=== PATIENT | male | born 1965 | race Two or more races ===

== ENCOUNTER 2017-07-05 12:56 | Emergency (ER) | payer OTHER ==
[~2017-07-05] VITALS: Ht 175.3 cm; Wt 79.4 kg
[2017-07-05] MEDS ORDERED: INDOMETHACIN75 MG PO (13:03)
[2017-07-05] MEDS ORDERED: ALLOPURINOL300 MG PO (13:15)
[2017-07-05] MEDS ORDERED: INDOMETHACIN25 MG PO (13:15)
== END 2017-07-05 13:44 | disposition home or self-care (01) ==
LOC: ED 12:56
DX: M10.9 Gout, unspecified (principal); Z79.899 Other long term (current) drug therapy
CPT/HCPCS: 96372; 99283; J1885

== ENCOUNTER 2019-08-16 13:45 | Emergency (ER) | payer OTHER ==
[~2019-08-16] VITALS: Ht 175.3 cm; Wt 79.4 kg
--- OUTSIDE RECORDS SUMMARY | ~2019-08-16 | XMS | Encounter Summary ---
Demographics + + + | Address | [address] | | | [place] [address] | + + + | Home Phone | | + + + | Preferred Language | Unknown | + + + | Marital Status | Single | + + + | Gnosticist Affiliation | Unknown | + + + | Race | Unknown | + + + | Ethnic Group | Unknown | + + + Author + + + | Author | [facility] | | | and [place] | + + + | Organization | [facility] | | | and [place] | + + + | Address | Unknown | + + + | Phone | Unavailable | + + + Support + + +---------+ + | Name | Relationship | Address | Phone | + + +---------+ + | Iraida Carey | ECON | Unknown | | + + +---------+ + Care Team Providers + +------+ + | Care Welfare Eligibility Interviewer Name | Role | Phone | + +------+ + | Sue Covington DO | PCP | | + +------+ + Reason for Visit +--------+ + | Reason | Comments | +--------+ + | Letter | | +--------+ + Encounter Details +--------+ + + + + | Date | Type | Department | Care Team | Description | +--------+ + + + + | 07/27/ | Telephone | [place] [facility] | Sue Covington, | Letter | | 2019 | | [facility] | DO [address] | | | | | [address] | [place] [address] | | | | | [address] [place], | [phone] | | | | | [place] [address] | | | | | | [phone] | | | +--------+ + + + + Social History + +-------+ +--------+------+ | Tobacco Use | Types | Packs/Day | Years | Date | | | | | Used | | + +-------+ +--------+------+ | Never Smoker | | | | | + +-------+ +--------+------+ + +---+---+---+ | Smokeless Tobacco: | | | | | Never Used | | | | + +---+---+---+ + + +---------+ + | Alcohol Use | Drinks/We | oz/Week | Comments | | | ek | | | + + +---------+ + | Yes | 0 Shots | 0.0 | occa | | | of | | | | | liquor | | | + + +---------+ + + + + | Sex Assigned at | Date Recorded | | | | + + + | Not on file | | + + + + + + + | Job Start Date | Occupation | Industry | + + + + | Not on file | Not on file | Not on file | + + + + + + + + | Travel History | Travel Start | Travel End | + + + + + + | No recent travel history available. | + + documented as of this encounter Plan of Treatment Not on filedocumented as of this encounter Visit Diagnoses Not on filedocumented in this encounter"
--- OUTSIDE RECORDS SUMMARY | ~2019-08-16 | XMS | Encounter Summary ---
Demographics + + + | Address | [address] | | | [place] [address] | + + + | Home Phone | | + + + | Preferred Language | Unknown | + + + | Marital Status | Single | + + + | Zoroastrianism Affiliation | Unknown | + + + | Race | Unknown | + + + | Ethnic Group | Unknown | + + + Author + + + | Author | [facility] | | | and [place] | + + + | Organization | [facility] | | | and [place] | [...] Team Providers + +------+ + | Care Rd Manager Name | Role | Phone | + +------+ + | Sue Covington DO | PCP | | + +------+ + Reason for Visit + + + | Reason | Comments | + + + | Medication Refill | | + + + Encounter Details +--------+--------+ + + + | Date | Type | Department | Care Team | Description | +--------+--------+ + + + | 06/24/ | Refill | [place] [facility] | Giuliana Gomezy | Medication Refill | | 2018 | | [facility] | [address]YIN [address] | | | | | [address] | [place], [place] | | | | | [address] [place], | [address] | | | | | [place] [address] | [phone] | | | | | [phone] | | | +--------+--------+ + + + Social History + +-------+ [...]
--- OUTSIDE RECORDS SUMMARY | ~2019-08-16 | XMS | Encounter Summary ---
Demographics + + + | Address | [address] | | | [place] [address] | + + + | Home Phone | | + + + | Preferred Language | Unknown | + + + | Marital Status | Single | + + + | Yarsanism Affiliation | Unknown | + + + | Race | Unknown | + + + | Ethnic Group | Unknown | + + + Author + + + | Author | [facility] | | | and [place] | + + + | Organization | [facility] | | | and [place] | [...] Team Providers + +------+ + | Care Testing Analyst Name | Role | Phone | + [...] Description | +--------+--------+ + + + | 08/13/ | Refill | [place] [facility] | Sue Covington, | Medication Refill | | 2019 | | [facility] | DO [address] | | | | | [address] | [place] [address] | | | | | [address] [place], | [phone] | | | | | [place] [address] | | | | | | [phone] | | | +--------+--------+ + + + [...]
--- OUTSIDE RECORDS SUMMARY | ~2019-08-16 | XMS | Encounter Summary ---
Demographics + + + | Address | [address] | | | [place] [address] | + + + | Home Phone | | + + + | Preferred Language | Unknown | + + + | Marital Status | Single | + + + | Confucianism Affiliation | Unknown | + + + | Race | Unknown | + + + | Ethnic Group | Unknown | + + + Author + + + | Author | [facility] | | | and [place] | + + + | Organization | [facility] | | | and [place] | [...] Team Providers + +------+ + | Care Ekg Manager Name | Role | Phone | [...] Description | +--------+--------+ + + + | 07/30/ | Refill | [place] [facility] | Sue Covington, | Medication Refill | | 2018 | | [facility] | DO [address] | | | | | [address] | [place] [address] | | | | | [address] [place], | [phone] | | | | | [place] [address] | | | | | | [phone] | | | +--------+--------+ + + + [...]
--- OUTSIDE RECORDS SUMMARY | ~2019-08-16 | XMS | Encounter Summary ---
Demographics + + + | Address | [address] | | | [place] [address] | + + + | Home Phone | | + + + | Preferred Language | Unknown | + + + | Marital Status | Single | + + + | Amish Affiliation | Unknown | + + + | Race | Unknown | + + + | Ethnic Group | Unknown | + + + Author + + + | Author | [facility] | | | and [place] | + + + | Organization | [facility] | | | and [...] Team Providers + +------+ + | Care Production Line Name | Role | Phone | + [...] Medication Refill | | 2019 | | [facility] | DO [address] | | | | | MED[address] | [place] [address] | | | | | [address] [place], | [phone] | | | | | [place] [address] | | | | | | [phone] | | | +--------+--------+ + + + [...]
--- OUTSIDE RECORDS SUMMARY | ~2019-08-16 | XMS | Encounter Summary ---
Demographics + + + | Address | [address] | | | [place] [address] | + + + | Home Phone | | + + + | Preferred Language | Unknown | + + + | Marital Status | Single | + + + | Sikhism Affiliation | Unknown | + + + | Race | Unknown | + + + | Ethnic Group | Unknown | + + + Author + + + | Author | [facility] | | | and [place] | + + + | Organization | [facility] | | | and [place] | [...] Team Providers + +------+ + | Care Supply Chain Director Name | Role | Phone | + [...] Medication Refill | | 2019 | | [facility] | DO [address] | | | | | MEDICAL [address] | [place] [address] | | | | | [address] [place], | [phone] | | | | | [place] [address] | | | | | | [phone] | | | +--------+--------+ + + + [...]
--- OUTSIDE RECORDS SUMMARY | ~2019-08-16 | XMS | Encounter Summary ---
Demographics + + + | Address | [address] | | | [place] [address] | + + + | Home Phone | | + + + | Preferred Language | Unknown | + + + | Marital Status | Single | + + + | Latter Day Affiliation | Unknown | + + + | Race | Unknown | + + + | Ethnic Group | Unknown | + + + Author + + + | Author | [facility] | | | and [place] | + + + | Organization | [facility] | | | and [place] | [...] Team Providers + +------+ + | Care Snow Technician Name | Role | Phone | + [...] Description | +--------+--------+ + + + | 08/15/ | Refill | [place] [facility] | Sue Covington, | Medication Refill | | 2019 | | [facility] | DO [address] | | | | | MED[address] | [place] [address] | | | | | [address] [place], | [phone] | | | | | [place] [address] | | | | | | [phone] | | | +--------+--------+ + + + [...]
--- OUTSIDE RECORDS SUMMARY | ~2019-08-16 | XMS | Encounter Summary ---
Demographics + + + | Address | [address] | | | [place] [address] | + + + | Home Phone | | + + + | Preferred Language | Unknown | + + + | Marital Status | Single | + + + | Bahai Affiliation | Unknown | + + + | Race | Unknown | + + + | Ethnic Group | Unknown | + + + Author + + + | Author | [facility] | | | and [place] | + + + | Organization | [facility] | | | and [place] [...] Team Providers + +------+ + | Care Personnel Adviser Name | Role | Phone | + [...] Giuliana Gomezy | Medication Refill | | 2019 | | [facility] | [address] | | | | | MEDICAL CL[address] | [place], [place] | | | | | [address] [place], | [address] | | | | | [place] [address] | [phone] | | | | | [phone] | | | +--------+--------+ + + + [...]
--- OUTSIDE RECORDS SUMMARY | ~2019-08-16 | XMS | Encounter Summary ---
Demographics + + + | Address | [address] | | | [place] [address] | + + + | Home Phone | | + + + | Preferred Language | Unknown | + + + | Marital Status | Single | + + + | Jehovah'S Witness Affiliation | Unknown | + + + | Race | Unknown | + + + | Ethnic Group | Unknown | + + + Author + + + | Author | [facility] | | | and [place] | + + + | Organization | [facility] | | | and [...] Team Providers + +------+ + | Care Railroad Firer/Fireman Name | Role | Phone | + [...] Refill | | 2018 | | [facility] | DO [address] | | | | | MED[address] | [place] [address] | | | | | [address] [place], | [phone] | | | | | [place] [address] | | | | | | [phone] | | | +--------+--------+ + + + [...]
--- OUTSIDE RECORDS SUMMARY | ~2019-08-16 | XMS | Encounter Summary ---
Demographics + + + | Address | [address] | | | [place] [address] | + + + | Home Phone | | + + + | Preferred Language | Unknown | + + + | Marital Status | Single | + + + | Caodaism Affiliation | Unknown | + + + | Race | Unknown | + + + | Ethnic Group | Unknown | + + + Author + + + | Author | [facility] | | | and [place] | + + + | Organization | [facility] | | | and [place] [...] Team Providers + +------+ + | Care Health Spa Manager Name | Role | Phone | [...] | [facility] | DO [address] | | | | | MED[address] | [place] [address] | | | | | [address] [place], | [phone] | | | | | [place] [address] | | | | | | [phone] | | | +--------+ + + + [...]
--- OUTSIDE RECORDS SUMMARY | ~2019-08-16 | XMS | Encounter Summary ---
Demographics + + + | Address | [address] | | | [place] [address] | + + + | Home Phone | | + + + | Preferred Language | Unknown | + + + | Marital Status | Single | + + + | Lutheran Affiliation | Unknown | + + + | Race | Unknown | + + + | Ethnic Group | Unknown | + + + Author + + + | Author | [facility] | | | and [place] | + + + | Organization | [facility] | | | and [place] [...] Team Providers + +------+ + | Care Radio Director Name | Role | Phone | [...] Medication Refill | | 2019 | | [facility] | DO [address] | | | | | MED[address] | [place] [address] | | | | | [address] [place], | [phone] | | | | | [place] [address] | | | | | | [phone] | | | +--------+--------+ + + + [...]
--- OUTSIDE RECORDS SUMMARY | ~2019-08-16 | XMS | Encounter Summary ---
Demographics + + + | Address | [address] | | | [place] [address] | + + + | Home Phone | | + + + | Preferred Language | Unknown | + + + | Marital Status | Single | + + + | Zoroastrianism Affiliation | Unknown | + + + | Race | Unknown | + + + | Ethnic Group | Unknown | + + + Author + + + | Author | [facility] | | | and [place] | + + + | Organization | [facility] | | | and [place] | [...] Team Providers + +------+ + | Care Shower Maid Name | Role | Phone | + [...] Medication Refill | | 2018 | | [facility] | [address] | | | | | MED[address] | [place], [place] | | | | | [address] [place], | [address] | | | | | [place] [address] | [phone] | | | | | [phone] | | | +--------+--------+ + + + [...]
--- OUTSIDE RECORDS SUMMARY | ~2019-08-16 | XMS | Clinical Summary ---
Demographics + + + | Address | [address] | | | [place] [address] | + + + | Home Phone | | + + + | Preferred Language | Unknown | + + + | Marital Status | Single | + + + | Episcopal Affiliation | Unknown | + + + | Race | Unknown | + + + | Ethnic Group | Unknown | + + + Author + + + | Author | [facility] | | | and [place] | + + + | Organization | [facility] | | | and [place] [...] Team Providers + +------+ + | Care Asp Web Developer Name | Role | Phone | + +------+ + | Sue Covington DO | PCP | | + +------+ + Allergies No Known Allergies Medications + + + +---------+------+------+-------+ | Medication | Sig | Dispensed | Refills | Star | End | Statu | | | | | | t | Date | s | | | | | | Date | | | + + + +---------+------+------+-------+ | aspirin 81 mg | Take 1 tablet by | 30 | 11 | 08/2 | | Activ | | chewable tablet | mouth Daily. | tablet | | 9/20 | | e | | | | | | 18 | | | + + + +---------+------+------+-------+ | metoprolol | Take 1 tablet by | 90 | 4 | 10/1 | | Activ | | succinate | mouth Daily. | tablet | | 0/20 | | e | | (TOPROL-XL) 100 mg | | | | 18 | | | | ER tablet | | | | | | | + + + +---------+------+------+-------+ | fenofibrate | TAKE ONE TABLET BY | 90 | 3 | 02/0 | | Activ | | (TRICOR) 145 mg | MOUTH ONCE DAILY | tablet | | 6/20 | | e | | tabletIndications: | | | | 19 | | | | Hyperlipidemia, | | | | | | | | unspecified | | | | | | | | hyperlipidemia type | | | | | | | + + + +---------+------+------+-------+ | | Place 1 patch onto | 10 | 2 | 02/0 | | Activ | | lidocaine-tetracaine | the skin as needed. | patch | | 8/20 | | e | | (SYNERA) 70-70 mg | To back for pain on | | | 19 | | | | PTCH | 12 hour off 12 hour | | | | | | | | prn | | | | | | + + + +---------+------+------+-------+ | indomethacin | Take 1 capsule by | 180 | 1 | 04/0 | | Activ | | (INDOCIN) 50 MG | mouth 2 times daily | capsule | | 3/20 | | e | | capsule | (with breakfast & | | | 19 | | | | | dinner). | | | | | | + + + +---------+------+------+-------+ | lisinopril | Take 40 mg BID | 60 | 11 | 08/2 | | Activ | | (PRINIVIL,ZESTRIL) | | tablet | | 8/20 | | e | | 40 MG tablet | | | | 19 | | | + + + +---------+------+------+-------+ | cyclobenzaprine | TAKE 1 TABLET BY | 30 | 0 | 10/0 | | Activ | | (FLEXERIL) 10 mg | MOUTH THREE TIMES | tablet | | 3/20 | | e | | tablet | DAILY NEEDED FOR | | | 19 | | | | | MUSCLE SPASM | | | | | | + + + +---------+------+------+-------+ | naproxen | TAKE 1 TABLET BY | 60 | 0 | 10/1 | | Activ | | (NAPROSYN) 500 mg | MOUTH TWICE DAILY | tablet | | 8/20 | | e | | tablet | WITH BREAKFAST AND | | | 19 | | | | | WITH DINNER | | | | | | + + + +---------+------+------+-------+ | naproxen | TAKE 1 TABLET BY | 60 | 0 | 08/0 | 10/1 | Disco | | (NAPROSYN) 500 mg | MOUTH TWICE DAILY | tablet | | 5/20 | 7/20 | ntinu | | tablet | WITH BREAKFAST AND | | | 19 | 19 | ed | | | DINNER | | | | | | + + + +---------+------+------+-------+ | cyclobenzaprine | TAKE 1 TABLET BY | 30 | 0 | 08/2 | 10/0 | Disco | | (FLEXERIL) 10 mg | MOUTH THREE TIMES | tablet | | 8/20 | 3/20 | ntinu | | tablet | DAILY NEEDED FOR | | | 19 | 19 | ed | | | MUSCLE SPASM | | | | | | + + + +---------+------+------+-------+ Active Problems + + + | Problem | Noted Date | + + + | Multiple joint pain | 12/05/2018 | + + + | Prediabetes | 11/05/2018 | + + + | Primary osteoarthritis of both knees | 05/29/2018 | + + + | Alcohol use | 11/28/2017 | + + + | Hyperlipidemia | 11/11/2017 | + + + + + | Overview: Overview: The original diagnosis was replaced | | automatically by the ICD-10 team to an ICD-10 compliant one. | | Please review for accuracy | + + + + + | Gout | 10/03/2017 | + + + | Essential hypertension | 10/03/2017 | + + + | Depression | 10/03/2017 | + + + | Sacroiliac joint somatic dysfunction | 03/08/2015 | + + + | Impaired fasting glucose | 04/27/2010 | + + + Resolved Problems + + + + | Problem | Noted | Resolved | | | Date | Date | + + + + | Benign secondary hypertension | 11/11/19 | | | | 18 | 8 | + + + + + + | Overview: Overview: The original diagnosis was replaced | | automatically by the ICD-10 team to an ICD-10 compliant one. | | Please review for accuracy | + + + + + + | Uncontrolled type 2 diabetes mellitus with hyperosmolarity | 11/01/19 | | | without coma | 16 | 8 | + + + + + + | Overview: Overview: | | Diagnosis Diabetes Type [address] Mark 10/18/15 | + + + + + + | Lumbar strain | 12/10/19 | | | | 15 | 8 | + + + + | Contusion of ankle, right | 06/11/20 | | | | 12 | 8 | + + + + | Contusion of foot, right | 06/11/20 | | | | 12 | 8 | + + + + | Left cornea abrasion | 04/01/20 | | | | 12 | 8 | + + + + | Eye foreign body | 04/01/20 | | | | 12 | 8 | + + + + | Contusion of eye | 11/07/19 | | | | 12 | 8 | + + + + | Pain in or around eye | 11/07/19 | | | | 12 | 8 | + + + + Encounters +--------+ + + + + | Date | Type | Specialty | Care Team | Description | +--------+ + + + + | 08/15/ | Refill | Primary Care | Adria, Sue A, | Medication Refill | | 2018 | | | DO | | +--------+ + + + + | 08/13/ | Refill | Primary Care | Sue Covington, | Medication Refill | | 2018 | | | DO | | +--------+ + + + + | 08/13/ | Refill | Primary Care | Jaida Gomez | Medication Refill | | 2018 | | | [facility] | | +--------+ + + + + | 07/30/ | Refill | Primary Care | Sue Covington, | Medication Refill | | 2018 | | | DO | | +--------+ + + + + | 07/27/ | Telephone | Primary Care | Sue Covington, | Letter | | 2018 | | | DO | | +--------+ + + + + | 06/24/ | Refill | Primary Care | Sue Covington, | Medication Refill | | 2018 | | | DO | | +--------+ + + + + | 06/24/ | Refill | Primary Care | Jaida Gomez | Medication Refill | | 2018 | | | [facility] | | +--------+ + + + + | 06/01/ | Refill | Primary Care | Sue Covington, | Medication Refill | | 2018 | | | DO | | +--------+ + + + + from Last 3 Months Immunizations + + + + | Name | Dates Previously Given | Next Due | + + + + | INFLUENZA, | 09/11/2013 | | | UNSPECIFIED | | | | FORMULATION | | | + + + + | TDAP, (ADOL/ADULT) | 11/01/2013, 03/26/2008 | | + + + + Family History + + +------+ + | Medical History | Relation | Name | Comments | + + +------+ + | Early | Mother | | | + + +------+ + | High blood pressure | Mother | | | + + +------+ + + +------+--------+ + | Relation | Name | Status | Comments | + +------+--------+ + | Mother | | | | + +------+--------+ + Social History + +-------+ +--------+------+ | [...] recent travel history available. | + + Last Filed Vital Signs + + + + | Vital Sign | Reading | Time Taken | + + + + | Blood Pressure | 134/74 | 01/21/2019824 PDT | + + + + | Pulse | 93 | 01/21/2019824 PDT | + + + + | Temperature | 37.2 C (99 F) | 01/21/2019824 PDT | + + + + | Respiratory Rate | 16 | 01/21/2019824 PDT | + + + + | Oxygen Saturation | 100% | 01/21/2019824 PDT | + + + + | Inhaled Oxygen | - | - | | Concentration | | | + + + + | Weight | 81.6 kg (180 lb) | 01/21/2019824 PDT | + + + + | Height | 180.3 cm (5' 11") | 01/21/2019824 PDT | + + + + | Body Mass Index | 25.1 | 01/21/2019824 PDT | + + + + Plan of Treatment + + + + + | Health Maintenance | Due Date | Last Done | Comments | + + + + + | Hepatitis C | | | | | Screening | 3 | | | + + + + + | Colorectal Cancer | | | | | Screening | 3 | | | | (Colonoscopy) | | | | + + + + + | Vaccine: Zoster (1 | | | | | of 2) | 3 | | | + + + + + | Primary Care | | 01/21/2019, 12/05/2018, | | | Outreach (Intense | 9 | 11/05/2018, Additional history | | | Risk) | | exists | | + + + + + | Vaccine: Influenza | | 09/11/2013 | | | (#1) | 9 | | | + + + + + | Vaccine: | | 11/01/2013, 03/26/2008 | | | Dtap/Tdap/Td (3 - | 4 | | | | Td) | | | | + + + + + Results Not on filefrom Last 3 Months Insurance + +--------+ +--------+ +---------+--------+ | Payer | Benefi | Subscriber | Effect | Phone | Address | Type | | | t Plan | ID | darrel | | | | | | / | | Dates | | | | | | Group | | | | | | + +--------+ +--------+ +---------+--------+ | [employer] | [employer] | [id number] | 11/05/19 | [phone] | | Medica | | MEDICAID HMO | HEALTH | | 19-Pre | 1 | | id | | | MDCD | | sent | | | | | | [place] | | | | | | + +--------+ +--------+ +---------+--------+ + +--------+ +--------+ + + | Guarantor Name | Accoun | Relation to | Date | Phone | Billing Address | | | t Type | Patient | of | | | | | | | | | | + +--------+ +--------+ + + | Rubens Jose | Person | Self [birth year] | [address] | | | al/Fam | | 1965 | [phone] | [place] [address] | | | alanna | | | [address] (Home) | | + +--------+ +--------+ + + Advance Directives Patient has advance care planning documents on file. For more information, please contact:[facility] [place] [address]
--- OUTSIDE RECORDS SUMMARY | ~2019-08-16 | XMS | Encounter Summary ---
Demographics + + + | Address | [address] | | | [place] [address] | + + + | Home Phone | | + + + | Preferred Language | Unknown | + + + | Marital Status | Single | + + + | Catholic Affiliation | Unknown | + + + | Race | Unknown | + + + | Ethnic Group | Unknown | + + + Author + + + | Author | [facility] | | | and [place] | + + + | Organization | [facility] | | | and [place] | [...] Team Providers + +------+ + | Care Lead Software Test Engineer Name | Role | Phone | + [...] Description | +--------+--------+ + + + | 06/01/ | Refill | [place] [facility] | Sue Covington, | Medication Refill | | 2019 | | [facility] | DO [address] | | | | | MED[address] | [place] [address] | | | | | [address] [place], | [phone] | | | | | [place] [address] | | | | | | [phone] | | | +--------+--------+ + + + [...]
--- OUTSIDE RECORDS SUMMARY | ~2019-08-16 | XMS | Encounter Summary ---
Demographics + + + | Address | [address] | | | [place] [address] | + + + | Home Phone | | + + + | Preferred Language | Unknown | + + + | Marital Status | Single | + + + | Oriental Orthodox Affiliation | Unknown | + + + | Race | Unknown | + + + | Ethnic Group | Unknown | + + + Author + + + | Author | [facility] | | | and Lalitana | + + + | Organization | [facility] | | | and Lalitana | [...] Team Providers + +------+ + | Care Garden Machinery Mechanic Name | Role | Phone | + [...] Medication Refill | | 2019 | | [facility] | DO [address] | | | | | [address] | [place] [address] | | | | | [address] [place], | [phone] | | | | | [place] [address] | | | | | | [phone] | | | +--------+--------+ + + + [...]
--- OUTSIDE RECORDS SUMMARY | ~2019-08-16 | XMS | Clinical Summary ---
Demographics + + + | Address | [address] | | | [place] [address] | + + + | Home Phone | | + + + | Preferred Language | Unknown | + + + | Marital Status | Single | + + + | Temple Affiliation | Unknown | + + + | Race | Unknown | + + + | Ethnic Group | Unknown | + + + Author + + + | Author | [facility] | | | and Lalitana | + + + | Organization | [facility] | | | and Lalitana [...] Team Providers + +------+ + | Care Rat Breeder Name | Role | Phone | + [...] | [employer] | [facility] | [id number] | 11/05/19 | [phone] | | Medica [...] | | al/Fam | | 1965 | [phone] | [place] [address] | | | alanna | | | 7 (Home) | | + +--------+ +--------+ + + Advance Directives Patient has advance care planning documents on file. For more information, please contact:[facility] [place] [address]
--- OUTSIDE RECORDS SUMMARY | ~2019-08-16 | XMS | Encounter Summary ---
Demographics + + + | Address | [address] | | | [place] [address] | + + + | Home Phone | | + + + | Preferred Language | Unknown | + + + | Marital Status | Single | + + + | Mormon Affiliation | Unknown | + + + | Race | Unknown | + + + | Ethnic Group | Unknown | + + + Author + + + | Author | [facility] | | | and Lalitana | + + + | Organization | [facility] | | | and Lalitana [...] Team Providers + +------+ + | Care Drywall Professional Name | Role | Phone | + [...] Medication Refill | | 2019 | | [facility] | DO [address] | | | | | [address] | [place] [address] | | | | | [address] [place], | [phone] | | | | | [place] [address] | | | | | | [phone] | | | +--------+--------+ + + + [...]
--- OUTSIDE RECORDS SUMMARY | ~2019-08-16 | XMS | Encounter Summary ---
Demographics + + + | Address | [address] | | | [place] [address] | + + + | Home Phone | | + + + | Preferred Language | Unknown | + + + | Marital Status | Single | + + + | Temple Affiliation | Unknown | + + + | Race | Unknown | + + + | Ethnic Group | Unknown | + + + Author + + + | Author | [facility] | | | and Lalitana | + + + | Organization | [facility] | | | and Lalitana [...] Team Providers + +------+ + | Care Veterinary Surgery Technician Name | Role | Phone | [...] Medication Refill | | 2019 | | [facility] | AlanYIN [address] | | | | | MED[address] | [place], [place] | | | | | [address] [place], | [address] | | | | | [place] [address] | [phone] | | | | | [phone] | | | +--------+--------+ + + + [...]
[~2019-08-16 13:45] MED LIST: ALLOPURINOL300 MG PO; INDOMETHACIN25 MG PO; INDOMETHACIN75 MG PO
--- OUTSIDE RECORDS SUMMARY | 2019-08-16 13:48 | XMS ---
PreManage Notification: JEFF BAKER Security Foil Spinner Events No recent Security Events currently on file CRITERIA MET - Group Notification CARE PROVIDERS DEEPAK DOHERTY Family Medicine: Geriatric Medicine Current PHONE: Unknown DEEPAK DOHERTY Primary Care Current PHONE: [phone] [place] has no Care Guidelines for this patient. Meghana VISIT COUNT (12 MO.) Kamran Magallon TOTAL 1 NOTE: Visits indicate total known visits. ED/UCC VISIT TRACKING (12 MO.) 08/16/2019 13:[address] [facility] [place] TYPE: Emergency COMPLAINT: - BACK PAIN, BODY ACHES INPATIENT VISIT TRACKING (12 MO.) No inpatient visits to display in this time frame [email or web address]
[2019-08-16] MEDS ORDERED: METOPROLOL SUC100 MG PO (14:03)
[2019-08-16] MEDS ORDERED: NAPROXEN500 MG PO (14:04)
[2019-08-16] MEDS ORDERED: NORCO 7.5-3251 EACH PO (16:25)
[2019-08-16] MEDS ORDERED: PREDNISONE20 MG PO (16:25)
== END 2019-08-16 16:35 | disposition home or self-care (01) ==
LOC: ED 13:45
DX: M25.562 Pain in left knee (principal); M79.672 Pain in left foot; I10 Essential (primary) hypertension; Z79.899 Other long term (current) drug therapy
CPT/HCPCS: 80053; 84550; 85025; 85651; 96361; 96374; 96375; 99283-25; J1885; J2930; J7030

== ENCOUNTER 2019-12-10 07:11 | Emergency (ER) | payer OTHER ==
[~2019-12-10] VITALS: Ht 175.3 cm; Wt 79.4 kg
[~2019-12-10 07:11] MED LIST changes: +METOPROLOL SUC100 MG PO; +NAPROXEN500 MG PO; +NORCO 7.5-3251 EACH PO; +PREDNISONE20 MG PO
--- OUTSIDE RECORDS SUMMARY | 2019-12-10 07:14 | XMS ---
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 Meghana VISIT COUNT (12 MO.) 2 CARLOS Magallon TOTAL 2 NOTE: Visits indicate total known visits. 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
[2019-12-10] MEDS ORDERED: PREDNISONE20 MG PO (09:37)
[2019-12-10] MEDS ORDERED: NORCO 7.5-3251 EACH PO (09:37)
== END 2019-12-10 10:51 | disposition home or self-care (01) ==
LOC: ED 07:11
DX: M10.9 Gout, unspecified (principal); D50.9 Iron deficiency anemia, unspecified; I10 Essential (primary) hypertension
CPT/HCPCS: 80053; 85025; 96361; 96374; 96375; 99284-25; A9270; J1885; J2930; J7030

== ENCOUNTER 2024-11-22 08:48 | Emergency (ER) | payer OTHER ==
[~2024-11-22] VITALS: Ht 175.3 cm; Wt 77.6 kg
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
[2024-11-22] MEDS ORDERED: LISINOPRIL10 MG PO (09:03)
[2024-11-22] MEDS ORDERED: HYDROCODON-ACE1 EA10 PO (09:03)
[2024-11-22] MEDS ORDERED: PRAVASTATIN SOD40 MG PO (09:03)
[2024-11-22] MEDS ORDERED: CYCLOBENZAPRINE5 MG PO (09:04)
[2024-11-22 09:08] LABS: EOSINOPHILS 1.5 % (0-6); HEMOGLOBIN 10.4 g/dL (12.0-18.0); LYMPHOCYTES 13.6 % (24-44); MCH 27.4 (27-36); MCHC 32.4 g/dl (30-36); MCV 84.4 fl (81-99); MONOCYTES 6.9 % (0-12); PLATELET COUNT 481 K/uL (140-440); RBC 3.79 M/ul (4.3-5.7); RDW 16.5 (10.5-15.0)
[2024-11-22] MEDS ORDERED: HYDROmorphone HCL 1 MG/ML SYR IV PRN (09:15)
[2024-11-22] MEDS ORDERED: KETOROLAC TROMETHAMINE 15 MG/ML VIAL IV ONE (09:15)
[2024-11-22] MEDS ORDERED: SODIUM CHLORIDE 0.9% 1,000 ML IV ONE ×2 (09:15→10:30)
[2024-11-22 09:23] LABS: ALBUMIN 2.9 g/dL (3.4-5.0); ALBUMIN/GLOBULIN RATIO 0.41 (1.1-2.4); ANION GAP 20.6 (7-21); BILIRUBIN, TOTAL 0.7 ng/dL (0.2-1.0); BUN/CREATININE RATIO 15.02 (6.0-28.6); CALCIUM 10.1 mg/dL (8.5-10.1); CREATININE, SERUM 3.46 mg/dL (0.70-1.30); POTASSIUM 4.6 mmol/L (3.5-5.1); PROTEIN, TOTAL 9.9 g/dL (6.4-8.2)
[2024-11-22 10:26] LABS: BILIRUBIN, URINE NEGATIVE (negative); BLOOD/HGB, URINE NEGATIVE (Negative); KETONE, URINE NEGATIVE (Negative); LEUK ESTERASE, URINE NEGATIVE (negative); NITRITE, URINE NEGATIVE (negative); PH, URINE 5.5 (5-7)
[2024-11-22 10:44] LABS: EPITHELIAL CELLS, URINE SQUAMOUS 2+ /lpf (0-1+)
[2024-11-22 10:45] LABS: CRYSTALS, URINE NONE SEEN (0-1+)
[2024-11-22 10:46] LABS: BACTERIA, URINE RARE /hpf (negative); CASTS, URINE WBC CAST 1+ \\lpf; COLLECTION TYPE, URINE CLEAN CATCH
[2024-11-22 10:47] LABS: REFLEX CULTURE, URINE No (No)
[2024-11-22] MEDS ORDERED: ONDANSETRON ODT8 MG PO (13:23)
[2024-11-22 13:35] VITALS: BP 147/97
--- NOTE | 2024-11-22 21:47 | EKG ---
[facility] [address] [facility] [place] [address] Signed Sinus tachycardia Left ventricular hypertrophy with repolarization abnormality ( R in aVL , [place] product , Romhilt-Larson ) Inferior infarct , age undetermined Abnormal ECG No previous ECGs available Confirmed by Rachana Rm MD () on 11/22/2024 9:46:50 PM Electronically Signed By: RACHANA RM MD 11/22/24 2147 PATIENT NAME: JEFF BAKER SIERRA Electrocardiogram DATE OF : 61 PHYSICIAN: RACHANA RM MD REPORT #: [id number] REPORT IS CONFIDENTIAL AND NOT TO BE RELEASED WITHOUT AUTHORIZATION
== END 2024-11-22 13:38 | disposition left against medical advice (07) ==
LOC: ED 08:48
PROVIDERS: Emergency Medicine
DX: N17.9 Acute kidney failure, unspecified (principal); I10 Essential (primary) hypertension; M10.9 Gout, unspecified; Z53.29 Procedure and treatment not carried out because of patient's decision for other reasons; Z79.899 Other long term (current) drug therapy
CPT/HCPCS: 36415; 71045; 71260; 80053; 81001; 83690; 84484; 85025; 85379; 93005; 93010; 96361; 99285-25; J1171; J1885; J7030

== ENCOUNTER 2024-11-23 08:51 | Emergency (ER) | payer MEDICARE ==
[~2024-11-23] VITALS: Ht 175.3 cm; Wt 79.4 kg
[~2024-11-23 08:51] MED LIST changes: +CYCLOBENZAPRINE5 MG PO; +HYDROCODON-ACE1 EA10 PO; +LISINOPRIL10 MG PO; +ONDANSETRON ODT8 MG PO; +PRAVASTATIN SOD40 MG PO
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
[2024-11-23] MEDS ORDERED: SODIUM CHLORIDE 0.9% 1,000 ML IV PRN (09:15)
[2024-11-23 09:17] LABS: BASOPHILS 0.3 % (0-2); EOSINOPHILS 1.4 % (0-6); HEMATOCRIT 28.1 % (35.0-50.0); HEMOGLOBIN 9.4 g/dL (12.0-18.0); LYMPHOCYTES 13.7 % (24-44); MCH 27.8 (27-36); MCHC 33.4 g/dl (30-36); MCV 83.2 fl (81-99); NEUTROPHILS 73.6 % (39-80); PLATELET COUNT 424 K/uL (140-440); RBC 3.37 M/ul (4.3-5.7); RDW 16.3 (10.5-15.0)
[2024-11-23 09:39] LABS: ALBUMIN 2.6 g/dL (3.4-5.0); ALBUMIN/GLOBULIN RATIO 0.42 (1.1-2.4); ANION GAP 17.4 (7-21); BILIRUBIN, TOTAL 0.9 ng/dL (0.2-1.0); BUN/CREATININE RATIO 14.74 (6.0-28.6); CALCIUM 10.4 mg/dL (8.5-10.1); CREATININE, SERUM 2.17 mg/dL (0.70-1.30); POTASSIUM 4.4 mmol/L (3.5-5.1); PROTEIN, TOTAL 8.8 g/dL (6.4-8.2)
[2024-11-23] MEDS ORDERED: DEXAMETHASONE SOD PHOS 10 MG/ML VIAL IV ONE (10:30)
[2024-11-23 11:58] LABS: ANION GAP 18.6 (7-21); BUN/CREATININE RATIO 15.76 (6.0-28.6); CALCIUM 9.3 mg/dL (8.5-10.1); CREATININE, SERUM 2.03 mg/dL (0.70-1.30); POTASSIUM 4.6 mmol/L (3.5-5.1)
[2024-11-23 12:41] VITALS: BP 154/98
== END 2024-11-23 12:42 | disposition home or self-care (01) ==
LOC: ED 08:51
PROVIDERS: Emergency Medicine
DX: E86.0 Dehydration (principal); N17.9 Acute kidney failure, unspecified; M25.562 Pain in left knee; M10.9 Gout, unspecified; I10 Essential (primary) hypertension; Z79.899 Other long term (current) drug therapy
CPT/HCPCS: 36415; 80048; 80053; 85025; 93971; 96361; 96374; 99284-25; J1100; J7030